=== PATIENT | female | born 1955 | race Caucasian/White ===

== ENCOUNTER 2020-03-30 10:30 | Observation (INO) ==
[2020-04-20] MEDS ORDERED: Lactated Ringers 1000 ml BAG 1,000 ML IV SCH (06:00)
[2020-04-20] MEDS ORDERED: Dexamethasone IV 4 MG/ML VIAL 1 ml VIAL IV SLOW PU ONE (06:00)
[2020-04-20] MEDS ORDERED: Buffered Lidocaine 1% SYRIN 1 ml INTRADERM ONE ×2 (06:00→06:16)
[2020-04-20] MEDS ORDERED: Dexamethasone IV 4 MG/ML VIAL 1 ml VIAL ONE ×2 (06:16→15:38)
[2020-04-20] MEDS ORDERED: Clindamycin 900 MG/D5W BAG 900 MG/50 ML BAG IVPB ONE (06:16)
[2020-04-20] MEDS ORDERED: ceFAZolin 2 GM PREMIX 2 GM/50 ML BAG ONE (06:53)
[2020-04-20] MEDS ORDERED: fentaNYL 100 mcg/2 ml 50 MCG/ML VIAL ONE ×2 (07:07→17:55)
[2020-04-20] MEDS ORDERED: Midazolam 2 mg/2 ml VIAL 1 mg/ml 2 ml VIAL (2 mg) ONE ×2 (07:08→14:47)
[2020-04-20] MEDS ORDERED: Bupivacaine 0.25% SDV 30 ML ONE (07:22)
[2020-04-20] MEDS ORDERED: Famotidine IV 10 MG/ML 2 ml VIAL (20 mg) ONE (07:36)
[2020-04-20] MEDS ORDERED: Lorazepam PYXIS KEY PRN (07:54)
[2020-04-20] MEDS ORDERED: Lorazepam PYXIS KEY ONE (08:04)
[2020-04-20] MEDS ORDERED: LORazepam 2 mg VIAL 1 ml ONE (08:04)
[2020-04-20] MEDS: LORazepam 2 mg VIAL 1 ml IV PUSH PRN ×2 (08:08→12:45)
[2020-04-20] MEDS ORDERED: Rocuronium 50 mg VIAL 10 mg/ml 5 ml VIAL (50 mg) ONE (14:48)
[2020-04-20] MEDS ORDERED: Propofol 10 MG/ML 20 ML BTL ONE (14:48)
[2020-04-20] MEDS ORDERED: Lidocaine 2% PF 5 ML VIAL ONE (14:58)
[2020-04-20] MEDS ORDERED: Vancomycin 1,000 MG VIAL ONE (15:20)
[2020-04-20] MEDS ORDERED: HYDROmorphone 1 MG/1 ML SYRINGE ONE ×3 (15:23→17:56)
[2020-04-20] MEDS ORDERED: Dexmedetomidine 200 mcg/2 ml 2 ml VIAL (200 mcg) ONE (15:26)
[2020-04-20] MEDS ORDERED: Naloxone 0.4 mg VIAL 0.4 mg/ml 1 ml VIAL IV PRN (16:41)
[2020-04-20] MEDS ORDERED: Ondansetron 4 mg VIAL 2 MG/ML 2 ml VIAL IV PRN ×2 (16:41→17:47)
[2020-04-20] MEDS ORDERED: diPHENhydraMINE IV 50 MG/ML 1 ml VIAL (BENADRYL) IV PRN ×2 (16:41→17:47)
[2020-04-20] MEDS ORDERED: Acetaminophen IV 1 GM/100ML 100 ML ONE (16:41)
[2020-04-20] MEDS ORDERED: DiMENhydriNATE IV 50 mg/ml 1 ml VIAL IV PUSH PRN (16:41)
[2020-04-20] MEDS ORDERED: Ondansetron 4 mg VIAL 2 MG/ML 2 ml VIAL ONE (17:01)
[2020-04-20] MEDS ORDERED: diPHENhydraMINE 25 mg TAB PO PRN (17:47)
[2020-04-20] MEDS ORDERED: Lactulose 30 ml UDC PO PRN (17:47)
[2020-04-20] MEDS ORDERED: Ondansetron ODT 4 mg TAB 4 MG TAB PO PRN (17:47)
[2020-04-20] MEDS ORDERED: Magnesium Hydroxide LIQ 30 ML UDC PO PRN (17:47)
[2020-04-20] MEDS ORDERED: Fluticasone NASAL SPRAY 50MCG 16 gm SPRAY BTL INTRANASAL PRN (17:51)
[2020-04-20] MEDS: HYDROmorphone 1 MG/1 ML SYRINGE IV PRN ×2 (17:57→18:09)
[2020-04-20] MEDS ORDERED: D5W 1/2 NS 1000 ml BAG 1,000 ML IV SCH (18:00)
[2020-04-20] MEDS: fentaNYL 100 mcg/2 ml 50 MCG/ML VIAL IV PRN ×2 (18:03→18:19)
[2020-04-20] MEDS ORDERED: fentaNYL PATCH 25 MCG/HR 1 PATCH TRANSDERM SCH (19:30)
[2020-04-20] MEDS: Magnesium Hydroxide LIQ 30 ML UDC PO SCH (20:24)
[2020-04-20] MEDS: CANNABIDIOL PO SCH (20:28)
[2020-04-20] MEDS: ceFAZolin 1 GM ADVAN 1 GM in NS 0.9% 50 ML 50 ML IVPB SCH (22:19)
[2020-04-21 05:09] LABS: Hematocrit 35 % (35-47); Hemoglobin 11.7 g/dL (12.0-16.0); Mean Platelet Volume 8.7 fL (7.4-10.4); Platelet Count 234 10^3/uL (150-450)
[2020-04-21 05:41] LABS: BUN/Creatinine Ratio 13.5 (8-20); Calcium 8.9 mg/dL (8.6-10.3); EGFR African American 70.4 (>60); EGFR Non-African American 58.1 (>60); Potassium 4.6 mmol/L (3.5-5.0)
[2020-04-21] MEDS: ceFAZolin 1 GM ADVAN 1 GM in NS 0.9% 50 ML 50 ML IVPB SCH ×2 (06:03→13:46)
[2020-04-21] MEDS ORDERED: fentaNYL Patch Check Q Shift NOTE FOLLOW UP SCH (07:00)
[2020-04-21] MEDS ORDERED: Vitamin THERAPEUTIC TAB PO SCH (09:00)
[2020-04-21] MEDS ORDERED: Aspirin EC 81 mg TAB.EC (enteric coated) PO SCH (09:00)
[2020-04-21] MEDS: CANNABIDIOL PO SCH ×2 (09:11→13:47)
[2020-04-21] MEDS: Magnesium Hydroxide LIQ 30 ML UDC PO SCH (09:12)
[2020-04-21 11:43] VITALS: BP 99/53
[2020-04-23] MEDS ORDERED: Scopolamine PATCH Remove NOTE PATCH OFF ONE (16:43)
== END 2020-04-21 15:25 | disposition home or self-care (01) ==
LOC: AA 04-20 05:38 → INTOOBSV 04-20 05:38 → SSU 04-20 17:47
PROVIDERS: ADMIT Orthopaedic Surgery; ATTEND Orthopaedic Surgery

== ENCOUNTER 2023-07-18 13:37 | Observation (INO) ==
[2023-07-18 14:47] LABS: ABS Basophils 0.1 10^3/uL (0.0-0.1); ABS Eosinophils 0.1 10^3/uL (0.0-0.5); ABS Lymphocytes 1.7 10^3/uL (1.0-4.8); ABS Monocytes 0.4 10^3/uL (0.0-0.9); ABS Neutrophils 3.7 10^3/uL (1.5-7.6); Eosinophil % 1.5 %; Hematocrit 31.5 % (35-45); Hemoglobin 10.6 g/dL (11.5-14.3); Lymphocyte % 29.2 %; Mean Corpuscular Hemoglobin 28.8 pg (27-33); Mean Corpuscular Hgb Conc 33.6 g/dL (31-36); Mean Corpuscular Volume 85.5 fL (80-97); Mean Platelet Volume 8.9 fL (7.5-11.2); Nucleated Red Blood Cells % 0.1 %/100WBC (0.0-0.8); Platelet Count 345 10^3/uL (150-450); Red Blood Count 3.68 10^6/uL (3.63-4.92); Red Cell Distribution Width 15.2 % (12-17)
[2023-07-18 15:15] LABS: ALT 10 U/L (7-52); Albumin 4.3 g/dL (3.2-5.2); Albumin/Globulin Ratio 1.3 (1-3); Alkaline Phosphatase 69 U/L (35-149); Anion Gap 7 mmol/L (2-16); Blood Urea Nitrogen 34 mg/dL (6-24); CO2 Carbon Dioxide 25 mmol/L (22-32); Calcium 8.8 mg/dL (8.6-10.3); Chloride 103 mmol/L (101-111); Creatinine, Serum 3.39 mg/dL (0.51-0.95); Globulin 3.4 g/dL (2-4); Glucose 114 mg/dL (70-100); Sodium 135 mmol/L (135-145); Total Bilirubin 0.4 mg/dL (0.2-1.0); Total Protein 7.7 g/dL (6.4-8.9); eGFR CKD-EPI 14.1 (>60)
[2023-07-18 15:41] LABS: Urine Appearance Clear; Urine Bilirubin Negative (Negative); Urine Blood Negative (Negative); Urine Color Yellow; Urine Glucose Negative (Negative); Urine Ketones Negative (Negative); Urine Nitrite Negative (Negative); Urine Protein Negative (Negative); Urine Urobilinogen Negative (Negative)
[2023-07-18 17:35] LABS: Magnesium 1.9 mg/dL (1.9-2.7); Potassium Redraw 3.9 mmol/L (3.5-5.0)
[2023-07-18 17:41] LABS: Phosphorus 3.3 mg/dL (2.5-5.0)
[2023-07-18 18:01] LABS: Creatine Kinase 45 U/L (10-223)
[2023-07-18 18:25] LABS: TSH Ultra Thyroid Stim Horm 1.92 mcIU/mL (0.34-5.60)
[2023-07-18 18:27] LABS: Free T3 2.69 pg/mL (2.5-3.9); Free T4 1.13 ng/dL (0.61-1.12)
[2023-07-18] MEDS: fentaNYL Patch Check Q Shift NOTE FOLLOW UP SCH ×2 (19:39→22:43)
[2023-07-18] MEDS ORDERED: fentaNYL PATCH 25 MCG/HR 1 PATCH TRANSDERM SCH (20:00)
[2023-07-18] MEDS ORDERED: Dextran 70/Hypromellose Tears Eye Drops 15 ml BTL (for Artificials Tears) BOTH EYES SCH (21:00)
[2023-07-18 21:13] LABS: C Reactive Protein 11.64 mg/L (<8.01)
[2023-07-18 21:27] LABS: Ferritin 24.1 ng/mL (11-307)
[2023-07-18] MEDS: Heparin 5000 UNITS/ML 1 mL VIAL SUBCUT SCH (22:40)
[2023-07-19] MEDS ORDERED: Dextran 70/Hypromellose Tears Eye Drops 15 ml BTL (for Artificials Tears) BOTH EYES PRN (02:14)
[2023-07-19] MEDS: Heparin 5000 UNITS/ML 1 mL VIAL SUBCUT SCH ×3 (06:00→21:59)
[2023-07-19 06:02] LABS: ABS Eosinophils 0.2 10^3/uL (0.0-0.5); ABS Lymphocytes 2.1 10^3/uL (1.0-4.8); ABS Monocytes 0.4 10^3/uL (0.0-0.9); ABS Neutrophils 2.1 10^3/uL (1.5-7.6); ABS Nucleated RBC 0.01 10^3/ul; Eosinophil % 3.4 %; Hematocrit 28.3 % (35-45); Hemoglobin 9.7 g/dL (11.5-14.3); Lymphocyte % 44.8 %; Mean Corpuscular Hemoglobin 28.8 pg (27-33); Mean Corpuscular Hgb Conc 34.1 g/dL (31-36); Mean Corpuscular Volume 84.4 fL (80-97); Mean Platelet Volume 8.3 fL (7.5-11.2); Nucleated Red Blood Cells % 0.1 %/100WBC (0.0-0.8); Platelet Count 261 10^3/uL (150-450); Red Blood Count 3.36 10^6/uL (3.63-4.92); Red Cell Distribution Width 14.9 % (12-17); White Blood Count 4.7 10^3/uL (3.8-11.8)
[2023-07-19 06:15] LABS: INR 1.16 (0.83-1.13)
[2023-07-19 06:32] LABS: Albumin 3.7 g/dL (3.2-5.2); Albumin/Globulin Ratio 1.3 (1-3); Calcium 8.3 mg/dL (8.6-10.3); Creatinine, Serum 3.41 mg/dL (0.51-0.95); Globulin 2.8 g/dL (2-4); Potassium 3.6 mmol/L (3.5-5.0); Total Bilirubin 0.3 mg/dL (0.2-1.0); Total Protein 6.5 g/dL (6.4-8.9)
[2023-07-19] MEDS: fentaNYL Patch Check Q Shift NOTE FOLLOW UP SCH ×2 (07:10→19:17)
[2023-07-20] MEDS: Heparin 5000 UNITS/ML 1 mL VIAL SUBCUT SCH ×3 (05:57→21:47)
[2023-07-20] MEDS: fentaNYL Patch Check Q Shift NOTE FOLLOW UP SCH ×2 (07:18→19:02)
[2023-07-20 08:11] LABS: Calcium 8.6 mg/dL (8.6-10.3)
[2023-07-20 08:16] LABS: Creatinine, Serum 3.31 mg/dL (0.51-0.95); eGFR CKD-EPI 14.5 (>60)
[2023-07-20] MEDS ORDERED: fentaNYL PATCH 12 MCG/HR 1 PATCH TRANSDERM SCH (17:00)
[2023-07-21] MEDS: Heparin 5000 UNITS/ML 1 mL VIAL SUBCUT SCH ×2 (06:28→13:09)
[2023-07-21] MEDS: fentaNYL Patch Check Q Shift NOTE FOLLOW UP SCH (06:48)
[2023-07-21 08:29] LABS: Hemoglobin 9.9 g/dL (11.5-14.3); Mean Corpuscular Hemoglobin 28.9 pg (27-33); Mean Corpuscular Hgb Conc 34.1 g/dL (31-36); Mean Corpuscular Volume 84.8 fL (80-97); Mean Platelet Volume 8.7 fL (7.5-11.2); Platelet Count 282 10^3/uL (150-450); Red Blood Count 3.42 10^6/uL (3.63-4.92); Red Cell Distribution Width 15.2 % (12-17)
[2023-07-21 08:55] LABS: Calcium 8.4 mg/dL (8.6-10.3); Creatinine, Serum 3.34 mg/dL (0.51-0.95); Magnesium 1.9 mg/dL (1.9-2.7); Potassium 3.7 mmol/L (3.5-5.0); eGFR CKD-EPI 14.3 (>60)
[2023-07-21 14:27] VITALS: BP 136/81
[2023-07-21 15:16] LABS: Anaplasma phagocytophilum Negative (Negative); B. miyamotoi PCR, B Negative (Negative); Babesia divergens/MO-1 Negative (Negative); Babesia ducani Negative (Negative); Ehrlichia chaffeensis Negative (Negative); Ehrlichia ewingii/canis Negative (Negative); Ehrlichia muris eauclairensis Negative (Negative)
== END 2023-07-21 15:40 | disposition short-term general hospital (02) ==
LOC: ED 13:37 → SUATTDRO 17:11 → EDHOLD 17:11 → INTOOBSV 17:11 → MED 21:05
PROVIDERS: ADMIT Internal Medicine; ATTEND Internal Medicine

== ENCOUNTER 2024-04-12 12:17 | Observation (INO) ==
[2024-04-12 13:07] LABS: ABS Eosinophils 0.4 10^3/uL (0.0-0.5); ABS Lymphocytes 1.5 10^3/uL (1.0-4.8); ABS Monocytes 0.7 10^3/uL (0.0-0.9); ABS Neutrophils 7.5 10^3/uL (1.5-7.6); ABS Nucleated RBC 0.01 10^3/ul; Eosinophil % 4.1 %; Hematocrit 28.8 % (35-45); Hemoglobin 9.2 g/dL (11.5-14.3); Lymphocyte % 14.9 %; Mean Corpuscular Hemoglobin 27.4 pg (27-33); Mean Corpuscular Hgb Conc 32.1 g/dL (31-36); Mean Corpuscular Volume 85.4 fL (80-97); Mean Platelet Volume 8.8 fL (7.5-11.2); Nucleated Red Blood Cells % 0.1 %/100WBC (0.0-0.8); Platelet Count 233 10^3/uL (150-450); Red Blood Count 3.37 10^6/uL (3.63-4.92); Red Cell Distribution Width 14.5 % (12-17); White Blood Count 10.1 10^3/uL (3.8-11.8)
[2024-04-12 14:05] LABS: Albumin 3.6 g/dL (3.2-5.2); Albumin/Globulin Ratio 1.2 (1-3); C Reactive Protein 133.36 mg/L (<8.01); Calcium 6.7 mg/dL (8.6-10.3); Creatinine, Serum 3.69 mg/dL (0.51-0.95); Globulin 2.9 g/dL (2-4); Potassium 4.2 mmol/L (3.5-5.0); Total Bilirubin 0.5 mg/dL (0.2-1.0); Total Protein 6.5 g/dL (6.4-8.9); eGFR CKD-EPI 12.7 (>60)
[2024-04-12 14:57] LABS: High Sensitivity Troponin 1 Hr 4 pg/mL (<15)
[2024-04-12] MEDS: Cefepime 1 GM in Dextrose 1 GM/50 ML BAG IV ONE (15:22)
[2024-04-12] MEDS ORDERED: Albuterol/Ipratropium NEB.SOL (2.5/0.5 MG) 3 ML NEB.SOLN INH PRN (16:05)
[2024-04-12] MEDS: Heparin 5000 UNITS/ML 1 mL VIAL SUBCUT SCH (16:06)
[2024-04-12] MEDS ORDERED: Fluticasone NASAL SPRAY 50MCG 16 gm SPRAY BTL INTRANASAL PRN (16:07)
[2024-04-12] MEDS: cefTRIAXone 1 gm/50 mL D5W 1 GM/50 ML BAG IV SCH (19:03)
[2024-04-12] MEDS: fentaNYL PATCH 12 MCG/HR 1 PATCH TRANSDERM SCH (19:33)
[2024-04-12] MEDS: fentaNYL Patch Check Q Shift NOTE FOLLOW UP SCH (19:34)
[2024-04-12] MEDS: Albuterol/Ipratropium NEB.SOL (2.5/0.5 MG) 3 ML NEB.SOLN INH SCH (19:48)
[2024-04-12] MEDS: Cetirizine 5 mg CHEW TAB PO SCH (20:19)
[2024-04-13 06:38] LABS: ABS Basophils 0.1 10^3/uL (0.0-0.1); ABS Eosinophils 0.6 10^3/uL (0.0-0.5); ABS Lymphocytes 1.6 10^3/uL (1.0-4.8); ABS Monocytes 0.7 10^3/uL (0.0-0.9); ABS Neutrophils 3.6 10^3/uL (1.5-7.6); ABS Nucleated RBC 0.01 10^3/ul; Eosinophil % 8.5 %; Hematocrit 25.5 % (35-45); Hemoglobin 8.7 g/dL (11.5-14.3); Lymphocyte % 24.4 %; Mean Corpuscular Hemoglobin 28.9 pg (27-33); Mean Corpuscular Hgb Conc 34.1 g/dL (31-36); Mean Corpuscular Volume 84.8 fL (80-97); Mean Platelet Volume 8.4 fL (7.5-11.2); Nucleated Red Blood Cells % 0.1 %/100WBC (0.0-0.8); Platelet Count 196 10^3/uL (150-450); Red Blood Count 3.01 10^6/uL (3.63-4.92); Red Cell Distribution Width 14.4 % (12-17); White Blood Count 6.6 10^3/uL (3.8-11.8)
[2024-04-13 07:17] LABS: Calcium 6.6 mg/dL (8.6-10.3); Creatinine, Serum 3.42 mg/dL (0.51-0.95); Magnesium 2.1 mg/dL (1.9-2.7); Potassium 3.7 mmol/L (3.5-5.0); eGFR CKD-EPI 13.9 (>60)
[2024-04-13] MEDS: Senna TAB 8.6 mg TAB PO PRN (12:36)
[2024-04-13] MEDS ORDERED: Albuterol/Ipratropium NEB.SOL (2.5/0.5 MG) 3 ML NEB.SOLN INH PRN (13:18)
[2024-04-14 11:12] VITALS: BP 114/67
== END 2024-04-14 12:30 | disposition home or self-care (01) ==
LOC: ED 12:17 → EDHOLD 12:17 → MED 17:15
PROVIDERS: ADMIT Internal Medicine; ATTEND Internal Medicine